=== PATIENT | female | born 1995 | race Two or more races ===

== ENCOUNTER 2018-01-27 15:37 | Emergency (ER) | payer OTHER ==
[2018-01-27 16:01] LABS: LEUKOCYTE ESTERASE, URINE TRACE (NEGATIVE); OCCULT BLOOD,URINE TRACE-LYSE (NEGATIVE)
[2018-01-27] MEDS ORDERED: cephALEXin 250 MG CAPSULE PO STA (16:09)
[2018-01-27 16:10] LABS: CLARITY,URINE CLEAR (CLEAR)
--- NOTE | 2018-01-27 16:10 | ED Physician Documentation ---
PD HPI FEMALE - Stated complaint Stated Complaint: FEMALE /ABD PX - Chief complaint Chief Complaint: UTI - History obtained from History obtained from: Patient, Family - History of Present Illness Timing - onset: How many days ago (2) Timing - duration: Days (2) Timing - details: Gradual onset, Still present Associated symptoms: Dysuria, Urinary frequency Similar symptoms before: Diagnosis (UTI) Recently seen: Not recently seen - Additional information Additional information: 22-year-old female is had symptoms of urinary urgency and frequency and dysuria for the past 2 days. She has taken some Azo which did not seem to help too much with the symptoms today. She is come in now for treatment. She denies any fever she denies any vomiting she has had some nausea and she denies any back pain. Review of Systems Constitutional: denies: Fever Eyes: denies: Decreased vision Ears: denies: Ear pain Nose: denies: Congestion Throat: denies: Sore throat Cardiac: denies: Chest pain / pressure Respiratory: denies: Dyspnea, Cough GI: reports: Nausea. denies: Abdominal Pain, Vomiting : reports: Dysuria, Frequency. denies: Hematuria Skin: denies: Rash Musculoskeletal: denies: Neck pain, Back pain PD PAST MEDICAL HISTORY - Present Medications Home Medications: Ambulatory Orders Medication Instructions Recorded Confirmed Cephalexin [Keflex] 500 mg PO TID #15 capsule 01/27/18 - Allergies Allergies/Adverse Reactions: Allergies Allergy/AdvReac Type Severity Reaction Status Date / Time No Known Drug Allergies Allergy Verified 01/27/18 15:44 PD ED PE NORMAL - Vitals Vital signs reviewed: Yes (normal ) - General General: Alert and oriented X 3, No acute distress, Well developed/nourished - HEENT HEENT: Atraumatic, PERRL - Neck Neck: Supple, no meningeal sign - Respiratory Respiratory: No respiratory distress - Back Back: No CVA TTP, No spinal TTP - Derm Derm: Normal color, Warm and dry, No rash - Extremities Extremities: No deformity, No edema - Neuro Neuro: No motor deficit, No sensory deficit Eye Opening: Spontaneous Motor: Obeys Commands Verbal: Oriented GCS Score: 15 - Psych Psych: Normal mood, Normal affect Results - Vitals Vitals: Vital Signs - 24 hr 01/27/18 01/27/18 15:41 16:19 Temperature 36.5 C 36.9 C Heart Rate 66 67 Respiratory 16 17 Rate Blood Pressure 123/64 111/60 O2 Saturation 100 98 Oxygen O2 Source Room air - Labs Labs: Laboratory Tests 01/27/18 15:54 Urine Color ORANGE Urine Clarity CLEAR Urine pH 5.0 Ur Specific [place] 1.025 Urine Protein Urine Glucose (UA) Urine Ketones Urine Occult Blood TRACE-LYSE Urine Nitrite Urine Bilirubin NEGATIVE Urine Urobilinogen Ur Leukocyte Esterase TRACE H Urine RBC 0-5 Urine WBC 11-25 H Ur Squamous Epith Cells MANY Squamous H Urine Bacteria Few Ur Microscopic Review INDICATED Urine Culture Comments NOT INDICATED Urine HCG, Qual NEGATIVE PD MEDICAL DECISION MAKING - ED course Complexity details: reviewed results, re-evaluated patient, considered differential, d/w patient, d/w family ED course: 22-year-old female with acute cystitis. Uncomplicated. Departure - Departure Disposition: 01 Home, Self Care Clinical Impression: Dysuria Urinary tract infection Qualifiers: Urinary tract infection type: acute cystitis Hematuria presence: without hematuria Qualified Code(s): N30.00 - Acute cystitis without hematuria Condition: Stable Instructions: ED UTI Cystitis Female Follow-Up: KATHERINE MUSA DO [Primary Care Provider] - Prescriptions: Cephalexin [Keflex] 500 mg PO TID #15 capsule Discharge Date/Time: 01/27/18 16:58
[2018-01-27 16:11] LABS: BILIRUBIN,URINE NEGATIVE (NEGATIVE); HCG UR QUAL NEGATIVE; ICTOTEST,URINE NEGATIVE
--- NOTE | 2018-01-27 16:11 | ED Physician Documentation ---
PD HPI FEMALE - Stated complaint Stated Complaint: FEMALE /ABD PX - Chief complaint Chief Complaint: UTI - History obtained from History obtained from: Patient PD PAST MEDICAL HISTORY - Present Medications Home Medications: Ambulatory Orders Medication Instructions Recorded Confirmed Cephalexin [Keflex] 500 mg PO TID #15 capsule 01/27/18 - Allergies Allergies/Adverse Reactions: Allergies Allergy/AdvReac Type Severity Reaction Status Date / Time No Known Drug Allergies Allergy Verified 01/27/18 15:44 Results - Vitals Vitals: Vital Signs - 24 hr 01/27/18 15:41 Temperature 36.5 C Heart Rate 66 Respiratory 16 Rate Blood Pressure 123/64 O2 Saturation 100 Oxygen O2 Source Room air Departure - Departure Disposition: Home, Self Care Clinical Impression: Dysuria Urinary tract infection Qualifiers: Urinary tract infection type: acute cystitis Hematuria presence: without hematuria Qualified Code(s): N30.00 - Acute cystitis without hematuria Condition: Stable Record reviewed to determine appropriate education?: Yes Instructions: ED UTI Cystitis Female Follow-Up: KATHERINE MUSA DO [Primary Care Provider] - Prescriptions: Cephalexin [Keflex] 500 mg PO TID #15 capsule
[2018-01-27 16:12] LABS: BACTERIA,URINE Few /HPF (None Seen); RBC,URINE 0-5 /HPF (0-5); SQUAMOUS EPITHELIAL CELL,UR MANY Squamous (<= Few)
[2018-01-27 16:20] VITALS: BP 111/60
== END 2018-01-27 16:58 | disposition home or self-care (01) ==
LOC: ED 15:37
DX: N30.00 Acute cystitis without hematuria (principal)
CPT/HCPCS: 81001; 81025; 99283; A9270; 81003; 87086